=== PATIENT | female | born 1950 | race Caucasian/White ===

== ENCOUNTER 2018-12-19 12:46 | Emergency (ER) | payer OTHER ==
[2018-12-19] MEDS ORDERED: DIPHTH,PERTUSS(ACELL),TET 0.5 ML DISP.SYRIN IM ONE ×2 (13:29→13:39)
[2018-12-19 13:30] VITALS: BP 146/81; PULSE 92; TEMP 98.1; BMI 24.7
--- NOTE | 2018-12-19 13:31 | PDOC ---
Rapid Medical Evaluation Chief Complaint: Pain Time Seen by Provider: 12/19/18 13:27 Medical Evaluation: Allergies Allergy/AdvReac Type Severity Reaction Status Date / Time No Known Drug Allergies Allergy Verified 12/02/13 07:17 12/19/18 13:28 I have performed a brief in-person evaluation of this patient. The patient presents with a chief complaint of: crush injury to right index finger Pertinent physical exam findings: swelling and pain to distal digit, + lac I have ordered the following: Xray, Boostrix The patient will proceed to the ED for further evaluation. 12/19/18 13:30 Discharge Disposition - Diagnosis Finger injury - Referrals - Patient Instructions - Post Discharge Activity
--- NOTE | 2018-12-19 14:44 | PDOC ---
History of Present Illness - General Chief Complaint: Pain Stated Complaint: RT. HAND LAC. 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) Exam Limitations: No Limitations (R index finger abrasion and pain after accidently struck with a staple gun at work today) - History of Present Illness Associated Symptoms: denies: fever/chills, weakness Past History - Travel Traveled outside of the country in the last 30 days: No Close contact w/someone who was outside of country & ill: No - Past Medical History Allergies/Adverse Reactions: Allergies Allergy/AdvReac Type Severity Reaction Status Date / Time No Known Drug Allergies Allergy Verified 12/19/18 13:30 Home Medications: Ambulatory Orders Alprazolam [Xanax -] 1 mg PO Q12H PRN 06/17/13 Amlodipine Besylate [Norvasc -] 5 mg PO DAILY 06/17/13 metFORMIN HCL [Glucophage -] 500 mg PO DAILY 06/17/13 Anemia: No CVA: No COPD: No CHF: No Diabetes: Yes HTN: Yes Hypercholesterolemia: No Liver Disease: No Seizures: No - Immunization History Immunization Up to Date: Yes - Suicide/Smoking/Psychosocial Hx Smoking History: Never smoked Have you smoked in the past 12 months: No Information on smoking cessation initiated: No Hx Alcohol Use: No Drug/Substance Use Hx: No Review of Systems - Review of Systems Able to Perform ROS?: Yes Is the patient limited Malay proficient: Yes Constitutional: No: Chills, Fever Musculoskeletal: Yes: Other (R index finger distal phalanx swelling and abrasion ). No: Joint Pain, Joint Swelling, Muscle Weakness Neurological: No: Numbness, Weakness *Physical Exam - Vital Signs Last Vital Signs Temp Pulse Resp BP Pulse Ox 98.1 F 92 H 18 146/81 95 12/19/18 13:26 12/19/18 13:26 12/19/18 13:26 12/19/18 13:26 12/19/18 13:26 - Physical Exam General Appearance: Yes: Nourished Respiratory/Chest: positive: Lungs Clear, Normal Breath Sounds Cardiovascular: positive: Regular Rhythm, Regular Rate, S1, S2 Extremity: positive: Normal Capillary Refill, Normal Range of Motion, Other (R index finger: + abrasion in distal phalanx, no swelling, bleeding noted, FROM, sensation intact. 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 helper II-XII NML intact, Fully Oriented, Alert, Normal Mood/ Affect, Normal Response, Motor Strength 11/03 ED Treatment Course - Medications Given in the ED: ED Medications Discontinued Medications Generic Name Dose Route Start Last Admin Trade Name Gali PRN Reason Stop Dose Admin Diphtheria/Tetanus/Acell Pertussis 0.5 ml 12/19/18 13:29 12/19/18 13:53 Boostrix - IM 12/19/18 13:30 0.5 ml .ONCE ONE Administration Medical Decision Making - Medical Decision Making 12/19/18 14:49 68y/o F L hand dominant p/w R index finger abrasion and tenderness after a staple gun accidental struck finger today unsure of last tetanus pt is not in pain on exam, FROM, abrasion across distal phalanx of R index finger cleanse and dressed finger splint given for comfort xray no fx tetanus updated *DC/Admit/Observation/Transfer Diagnosis at time of Disposition: Abrasion Finger injury Qualifiers: Encounter type: initial encounter Laterality: right Qualified Code(s): S69.91XA - Unspecified injury of right wrist, hand and finger(s), initial encounter - Discharge Dispostion Disposition: HOME Condition at time of disposition: Stable Decision to Admit order: No - Referrals Referrals: Marleny Grimes MD [Primary Care Provider] - - Patient Instructions Printed Discharge Instructions: Contusion, DI for Abrasion Additional Instructions: Your preliminary xray today was negative for acute fracture and dislocation, no evidence of retained foreign body you will be contacted if the official report is different Your tetanus was updated today Take Motrin for pain Follow up with your PCP Return to the ER if worsening symptom occurs - Post Discharge Activity
== END 2018-12-19 15:22 | disposition home or self-care (01) ==
LOC: JERFT 12:46
PROC: 3E0234Z Introduction of Serum, Toxoid and Vaccine into Muscle, Percutaneous Approach (ICD-10-PCS; principal; 2018-12-19)
PROC: 2W3JX1Z Immobilization of Right Finger using Splint (ICD-10-PCS; 2018-12-19)
DX: S60.410A Abrasion of right index finger, initial encounter (principal); W27.8XXA Contact with other nonpowered hand tool, initial encounter; Y93.89 Activity, other specified; Y92.63 Factory as the place of occurrence of the external cause; Y99.0 Civilian activity done for income or pay; I10 Essential (primary) hypertension; E11.9 Type 2 diabetes mellitus without complications; Z79.84 Long term (current) use of oral hypoglycemic drugs
CPT/HCPCS: 73140-TC-RT-FY; 90715; 99281-25

== ENCOUNTER 2019-01-11 13:11 | Emergency (ER) | payer OTHER ==
[2019-01-11 13:19] VITALS: BMI 25.5
[2019-01-11] MEDS ORDERED: IBUPROFEN 400 MG TABLET (FP) PO ONE (14:21)
[2019-01-11] MEDS ORDERED: CYCLOBENZAPRINE HCL 10 MG TABLET (FP) PO ONE (14:21)
[2019-01-11] MEDS ORDERED: ACETAMINOPHEN 1000 MG/100 ML VIAL (NON FORMULARY) IVPB ONE (14:44)
[2019-01-11] MEDS ORDERED: CYCLOBENZAPRINE HCL 10 MG TABLET (FP) ONE (14:55)
[2019-01-11] MEDS ORDERED: ACETAMINOPHEN INJECTION 100 ML IVPB ONE (14:55)
--- NOTE | 2019-01-11 14:57 | PDOC ---
History of Present Illness - General Chief Complaint: Pain Stated Complaint: HEADACHE Time Seen by Provider: 01/11/19 13:47 - History of Present Illness Initial Comments: 01/11/19 14:57 68yo F w/no PMH presents from home c/o posterior headache and neck pain x4 days. 4 days ago, pt had acute onset of L arm and shoulder pain, neck pain, and posterior head pain. Pt went to [facility] ER and had EKG, labs, CTH, and XR L shoulder and c-spine. Pt was dx with muscle strain and was sent home with motrin and flexeril, with some relief. Pt states the arm/shoulder pain resolved , but the neck and head pain has continued. Describes neck and head pain as posterior, acute onset, constant, unchanged, like "something is moving around" in neck, worse with neck flexion, improves with motrin and flexeril. Denies dizziness, endorses "room spinning," worse with lying down, for 4 days. Denies F /C, N/V, vision changes, photophobia, stiff neck, weakness, numbnes/tingling, confusion, difficulties speaking or walking, CP, SOB, trauma/falls. Endorses lots of bending/stooping over at work. Last took motrin 400 and flexeril 10 today at 1130. Pt states no hx of vertigo, headache or neck pain, but records show an MRI c-spine done for headache on 05/22/18 showing degenerative changes and anterior spondylosis. PCP - Dr. Grimes Past History - Past Medical History Allergies/Adverse Reactions: Allergies Allergy/AdvReac Type Severity Reaction Status Date / Time No Known Drug Allergies Allergy Verified 01/11/19 13:15 Home Medications: Ambulatory Orders Alprazolam [Xanax -] 1 mg PO Q12H PRN 06/17/13 Amlodipine Besylate [Norvasc -] 5 mg PO DAILY 06/17/13 metFORMIN HCL [Glucophage -] 500 mg PO DAILY 06/17/13 Cyclobenzaprine HCl [Flexeril 10 mg] 10 mg PO BID PRN #10 tablet 01/11/19 Ibuprofen [Motrin -] 600 mg PO QID PRN #28 tablet 01/11/19 Anemia: No CVA: No COPD: No CHF: No Diabetes: Yes HTN: Yes Hypercholesterolemia: No Liver Disease: No Seizures: No - Immunization History Immunization Up to Date: Yes - Suicide/Smoking/Psychosocial Hx Smoking History: Never smoked Have you smoked in the past 12 months: No Information on smoking cessation initiated: No Hx Alcohol Use: No Drug/Substance Use Hx: No Review of Systems - Review of Systems Comments:: 01/11/19 17:33 Constitutional: Negative for chills, fever, fatigue. HENT: Negative for sore throat, rhinorrhea, congestion. Eyes: Negative for visual disturbance. Respiratory: Negative for shortness of breath, cough, and wheezing. Cardiovascular: Negative for chest pain, palpitations, and leg swelling. Gastrointestinal: Negative for abdominal pain, blood in stool, constipation, diarrhea, nausea, and vomiting. Genitourinary: Negative for dysuria, flank pain, and hematuria. Musculoskeletal: Positive for neck pain. Negative for myalgias, back pain. Skin: Negative for rash. Neurological: Positive for posterior head pain and "room spinning". Negative for light-headedness, dizziness, syncope, weakness, numbness. Psychiatric/Behavioral: Negative for behavioral problems and confusion. *Physical Exam - Vital Signs Last Vital Signs Temp Pulse Resp BP Pulse Ox 98.4 F 98 H 18 143/79 97 01/11/19 13:16 01/11/19 13:16 01/11/19 13:16 01/11/19 13:16 01/11/19 13:16 - Physical Exam Comments: 01/11/19 17:34 Gen: Alert, NAD, comfortable-appearing. HEENT: TTP on inferior posterior scalp. PERRLA, EOMI, MMM, NCAT. No conjunctival pallor. Sclera are non-icteric. Oropharynx is clear. CV: Regular rate and rhythm. No murmurs, rubs, or gallops. PULM: No resp distress. CTAB, no wheezes, rales, or rhonchi. ABD: soft, NT/ND, no rebound tenderness or guarding, no CVA tenderness. BACK: Midline and paraspinal TTP of c-spine. No TTP of t/l-spine. No step-offs or deformities. MSK: No bony deformities. 2+ pulses in all extremities. NEURO: AAOx3. PERRLA. CN 2-12 intact. 5/5 strength in all extremities. Sensation to light touch intact in all extremities. No pronator drift. No dysmetria. No dysdiadochokinesia. No abnormal nystagmus. No skew deviation. Normal gait, heel walking, toe walking, and heel-to-toe walking. EXTREMITIES: No cyanosis. No clubbing. No edema. No calf tenderness. PSYCH: Normal mood and thought pattern. SKIN: Warm and dry. Normal capillary refill. No rashes. No jaundice. ED Treatment Course - LABORATORY CBC & Chemistry Diagram: 01/11/19 14:42 01/11/19 14:42 Medical Decision Making - Medical Decision Making 01/11/19 14:57 68yo F w/no PMH presents from home w/posterior headache, neck pain, and vertigo x4 days. 4 days ago, [facility] ER did EKG, labs, CTH, and XR L shoulder and c -spine and dx with muscle strain. Pt repetitively dayami over for work and pain improves with motrin and flexeril, so pain is most likely a muscle strain - give Tylenol and Flexril and reassess. Due to midline c-spine tenderness, consider fx or dislocation - call [facility] for XR results. Supple neck and lack of fever not concerning for meningitis - evalaute with CBC; no further workup indicated. Headache not concerning for SAH due to lack of N/V or neurologic deficit - get CTH results from [facility]. "Room spinning" concerning for cerebellar stroke or vertebral artery dissection, but no nystagmus, gait abnormalities, or neurologic deficits on exam - no further testing indicated. Also consider anemia, infectious etiologies, and metabolic derangements - r/o with CBC, CMP, Coags. MRI c-spine done for headache on 05/22/18 showing degenerative changes and anterior spondylosis. Spoke with [facility] ER. They did a c-spine XR, L shoulder XR, and CTH - c- spine showed spondylosis (also seen in CT c-spine here 05/22/18), no acute findings. No new trauma or change in sx since [facility] visit - no indication for additional imaging. -Labs: CBC, CMP, Coags -Tylenol and Flexeril for pain -Call Dr. Grimes -Dispo: likely d/c home with PCP f/u 01/11/19 15:46 Labs reviewed. No concerning findings. Pt feels better s/p meds and wants to go home. 01/11/19 16:[address] Grimes - will see her Sunday. Will dc home with supportive treatment. Return precautions given. Pt. understands all dc instructions and all questions were answered. *DC/Admit/Observation/Transfer Diagnosis at time of Disposition: Cervical muscle strain - Discharge Dispostion Disposition: HOME Condition at time of disposition: Improved Decision to Admit order: No - Prescriptions Prescriptions: Cyclobenzaprine HCl [Flexeril 10 mg] 10 mg PO BID PRN #10 tablet PRN Reason: Pain Ibuprofen [Motrin -] 600 mg PO QID PRN #28 tablet PRN Reason: Pain - Referrals Referrals: Marleny Grimes MD [Staff Physician] - - Patient Instructions Printed Discharge Instructions: DI for Cervical Muscle Strain Additional Instructions: You have been seen in the Emergency Department for your neck and head pain. Your labs show no signs concerning for an emergent condition. You already received a cervical (neck) X-ray and CT scan of your head on Sunday at [facility] and they showed no fracture or dislocation. Your pain improved with Flexeril and Tylenol. Your pain is most likely a muscle strain. For pain, we have prescribed you Flexeril (a muscle relaxant) and Motrin (a pain reliever) - take as directed on labels. We spoke with your primary care doctor Dr. Grimes and she wants you to follow- up with her on Sunday. Call the office today to make an appointment. Return to the ED immediately if you experience pain not controlled by over the counter medications, dizziness, trouble speaking or walking, numbness/tingling, weakness, or any other new or worsening symptom. - Post Discharge Activity Forms/Work/School Notes: Back to Work
[2019-01-11 15:10] LABS: BASO % 0.7 % (0-2.0); EOS % 2.5 % (0-4.5); HEMATOCRIT 37.1 % (32.4-45.2); HEMOGLOBIN 12.6 GM/dL (10.7-15.3); LYMPH % 30.4 % (8-40); MCH 29.7 pg (25.7-33.7); MCHC 33.8 g/dl (32.0-36.0); MEAN CELL VOLUME 87.8 fl (80-96); MEAN PLT VOLUME 7.2 fl (7.5-11.1); MONO % 8.3 % (3.8-10.2); NEUT % 58.1 % (42.8-82.8); RBC 4.22 M/mm3 (3.60-5.2); RDW 13.1 % (11.6-15.6); WHITE BLOOD COUNT 5.1 K/mm3 (4.0-10.0)
[2019-01-11 15:15] LABS: INR 0.97 (0.83-1.09); PROTHROMBIN TIME (PATIENT) 11.5 SEC (9.7-13.0)
[2019-01-11 15:18] LABS: ACTIVATED PTT 29.5 SECONDS (25.2-36.5)
[2019-01-11 15:22] LABS: PLATELET COUNT 263 K/MM3 (134-434)
[2019-01-11 15:31] LABS: ALBUMIN 4.1 g/dl (3.4-5.0); BILIRUBIN,TOTAL 0.2 mg/dL (0.2-1); BLOOD UREA NITROGEN 18.4 mg/dL (7-18); CALCIUM 8.7 mg/dL (8.5-10.1); CREATININE 0.7 mg/dL (0.55-1.3); POTASSIUM 4.5 mmol/L (3.5-5.1); TOT PROT 7.6 g/dl (6.4-8.2)
[2019-01-11 16:36] VITALS: TEMP 97.5
[2019-01-11 16:55] VITALS: BP 137/82; PULSE 84
== END 2019-01-11 16:50 | disposition home or self-care (01) ==
LOC: JER 13:11
PROC: 3E033NZ Introduction of Analgesics, Hypnotics, Sedatives into Peripheral Vein, Percutaneous Approach (ICD-10-PCS; principal; 2019-01-11)
DX: S16.1XXA Strain of muscle, fascia and tendon at neck level, initial encounter (principal); X50.1XXA Overexertion from prolonged static or awkward postures, initial encounter; Y93.89 Activity, other specified; Y92.63 Factory as the place of occurrence of the external cause; Y99.0 Civilian activity done for income or pay
CPT/HCPCS: 36415; 80053; 85025; 85610; 85730; 99283-25; J0131

== ENCOUNTER 2023-06-29 12:13 | Emergency (ER) | payer OTHER ==
[2023-06-29 12:49] VITALS: RESP 18; BMI 23.8
[2023-06-29] MEDS ORDERED: MECLIZINE HCL 25 MG TABLET (FP) ONE (14:01)
[2023-06-29] MEDS: MECLIZINE HCL 25 MG TABLET (FP) PO ONE (14:04)
[2023-06-29 14:48] LABS: BASO % 0.4 % (0-2.0); HEMATOCRIT 41.9 % (32.4-45.2); HEMOGLOBIN 13.8 GM/dL (10.7-15.3); LYMPH % 23.7 % (8-40); MCH 28.9 pg (25.7-33.7); MEAN CELL VOLUME 87.5 fl (80-96); MEAN PLT VOLUME 6.8 fl (7.5-11.1); NEUT % 64.9 % (42.8-82.8); PLATELET COUNT 275 10^3/uL (134-434); RBC 4.79 M/mm3 (3.60-5.2); RDW 12.9 % (11.6-15.6); WHITE BLOOD COUNT 5.3 K/mm3 (4.0-10.0)
[2023-06-29 14:56] LABS: INR 1.11 (0.83-1.09); PROTHROMBIN TIME (PATIENT) 12.9 SEC (9.7-13.0)
[2023-06-29 15:14] LABS: POTASSIUM 4.2 mmol/L (3.5-5.1)
[2023-06-29 15:16] LABS: CALCIUM 9.6 mg/dL (8.5-10.1)
[2023-06-29 15:18] LABS: ALBUMIN 4.2 g/dl (3.4-5.0); BLOOD UREA NITROGEN 10.5 mg/dL (7-18); MAGNESIUM 2.1 mg/dL (1.8-2.4)
[2023-06-29 15:21] LABS: CREATININE 0.7 mg/dL (0.55-1.3)
[2023-06-29 15:22] LABS: BILIRUBIN,TOTAL 0.2 mg/dL (0.2-1); TOT PROT 8.1 g/dl (6.4-8.2)
[2023-06-29 16:11] VITALS: BP 168/90; PULSE 86; TEMP 98
== END 2023-06-29 16:11 | disposition home or self-care (01) ==
LOC: JER 12:13
DX: H81.399 Other peripheral vertigo, unspecified ear (principal); R11.0 Nausea
CPT/HCPCS: 36415; 71045-TC-FY; 80053; 83735; 84484; 85025; 85610; 93005; 93010; 99285-25

== ENCOUNTER 2024-01-23 05:16 | Emergency (ER) | payer OTHER ==
[2024-01-23 05:24] VITALS: BP 153/83; PULSE 95; RESP 18; TEMP 98; BMI 23.4
[2024-01-23] MEDS ORDERED: ACETAMINOPHEN 325 MG TABLET (FP) ONE (05:43)
[2024-01-23] MEDS: ACETAMINOPHEN 500 MG TABLET (FP) PO ONE (05:54)
[2024-01-23 06:16] LABS: EPI CELLS 11 /uL (0-25.1); HYALINE CASTS 0 /uL (0-3.1); URINE APPEARANCE CLEAR; URINE BACTERIA 24 /uL (0-1359); URINE BILIRUBIN NEGATIVE (NEGATIVE); URINE COLOR ORANGE; URINE GLUCOSE (UA) NEGATIVE (NEGATIVE); URINE KETONE 1+ (NEGATIVE); URINE LEUK ESTERASE TRACE (NEGATIVE); URINE NITRITE NEGATIVE (NEGATIVE); URINE PROTEIN 1+ (NEGATIVE); URINE RBC 6274 /uL (0-23.9); URINE UROBILINOGEN 0.2 mg/dL (0.2-1.0); URINE WBC 32 /uL (0-25.8)
[2024-01-23] MEDS ORDERED: CEPHALEXIN MONOHYDRATE 500 MG CAPSULE (UD) ONE (06:29)
[2024-01-23] MEDS: CEPHALEXIN MONOHYDRATE 500 MG CAPSULE (UD) PO ONE (06:37)
[2024-01-23 10:01] LABS: URINE CRYSTALS NONE SEEN /hpf; YEAST POSITIVE (NEGATIVE)
== END 2024-01-23 06:38 | disposition home or self-care (01) ==
LOC: JER 05:16
DX: R10.30 Lower abdominal pain, unspecified (principal); R30.0 Dysuria; R31.9 Hematuria, unspecified; N39.0 Urinary tract infection, site not specified
CPT/HCPCS: 81003; 87086; 99283-25

== ENCOUNTER 2024-01-25 09:22 | Emergency (ER) | payer OTHER ==
[2024-01-25 09:27] VITALS: RESP 18; TEMP 97.9; BMI 23.4
[2024-01-25] MEDS ORDERED: ACETAMINOPHEN INJECTION 100 ML IVPB ONE (10:18)
[2024-01-25] MEDS ORDERED: ONDANSETRON 4 MG/2 ML VIAL ONE (10:18)
[2024-01-25] MEDS: ACETAMINOPHEN 1000 MG/100 ML BAG IVPB ONE (10:45)
[2024-01-25] MEDS: ONDANSETRON 4 MG/2 ML VIAL IVPUSH ONE (10:45)
[2024-01-25] MEDS: SODIUM CHLORIDE 0.9% 500 ML INFUS.BAG IV ONE (10:46)
[2024-01-25 10:53] LABS: BASO % 0.3 % (0-2.0); EOS % 0.5 % (0-4.5); HEMATOCRIT 35.5 % (32.4-45.2); HEMOGLOBIN 12.1 GM/dL (10.7-15.3); LYMPH % 9.7 % (8-40); MCHC 34.1 g/dl (32.0-36.0); MEAN CELL VOLUME 90.9 fl (80-96); MEAN PLT VOLUME 7.6 fl (7.5-11.1); MONO % 8.9 % (3.8-10.2); NEUT % 80.6 % (42.8-82.8); PLATELET COUNT 216 10^3/uL (134-434); RBC 3.91 M/mm3 (3.60-5.2); RDW 13.5 % (11.6-15.6); WHITE BLOOD COUNT 9.6 K/mm3 (4.0-10.0)
[2024-01-25 11:14] LABS: POTASSIUM 4.4 mmol/L (3.5-5.1)
[2024-01-25 11:16] LABS: ALBUMIN 3.9 g/dl (3.4-5.0); CALCIUM 8.7 mg/dL (8.5-10.1); MAGNESIUM 2.1 mg/dL (1.8-2.4)
[2024-01-25 11:19] LABS: CREATININE 0.8 mg/dL (0.55-1.3)
[2024-01-25 11:21] LABS: BILIRUBIN,TOTAL 0.6 mg/dL (0.2-1); TOT PROT 7.2 g/dl (6.4-8.2)
[2024-01-25 11:33] LABS: EPI CELLS 9 /uL (0-25.1); HYALINE CASTS 1 /uL (0-3.1); PH,URINE 6.5 (5.0-8.0); URINE APPEARANCE CLEAR; URINE BACTERIA 6 /uL (0-1359); URINE BILIRUBIN NEGATIVE (NEGATIVE); URINE COLOR YELLOW; URINE GLUCOSE (UA) NEGATIVE (NEGATIVE); URINE KETONE NEGATIVE (NEGATIVE); URINE LEUK ESTERASE TRACE (NEGATIVE); URINE NITRITE NEGATIVE (NEGATIVE); URINE PROTEIN NEGATIVE (NEGATIVE); URINE RBC 69 /uL (0-23.9); URINE UROBILINOGEN 0.2 mg/dL (0.2-1.0); URINE WBC 39 /uL (0-25.8)
[2024-01-25 13:33] VITALS: BP 128/76; PULSE 74
== END 2024-01-25 13:33 | disposition home or self-care (01) ==
LOC: JER 09:22
PROC: 3E033NZ Introduction of Analgesics, Hypnotics, Sedatives into Peripheral Vein, Percutaneous Approach (ICD-10-PCS; principal; 2024-01-25)
PROC: 3E033GC Introduction of Other Therapeutic Substance into Peripheral Vein, Percutaneous Approach (ICD-10-PCS; 2024-01-25)
DX: N13.2 Hydronephrosis with renal and ureteral calculous obstruction (principal); R10.31 Right lower quadrant pain; R11.2 Nausea with vomiting, unspecified
CPT/HCPCS: 36415; 74177-TC; 80053; 81003; 83735; 85025; 87086; 99285-25; J0131; Q9967